=== PATIENT | female | born 1990 | race Asian ===

== ENCOUNTER 2019-11-30 20:26 | Emergency (ER) | payer OTHER ==
[2019-11-30 20:45] VITALS: TEMP 97.9; BMI 29.2
[2019-11-30] MEDS ORDERED: ACETAMINOPHEN 325 MG TABLET (FP) PO ONE (22:23)
--- NOTE | 2019-11-30 22:41 | PDOC ---
History of Present Illness - History of Present Illness Initial Comments: 11/30/19 22:25 29 y/o F with no PMH presents to the ED for left sided abdominal and back pain. pt explains that she was cleaning her 's car when she fell on her buttocks yesterday. Since then she has been having this 4/10 intermittent pain in her back/ abdomen on the left side. Pain is dull non radiating without any associated symptoms. On further questioning, pt endorses that her LMP was mid july, has been gaining weight, 2 episodes of intermittent spotting (2weeks ago and 6 days ago) with a positive home month and a half ago. Pt has not been able to see an Invasive Cardiologist due to lab of appointment availability. She denies any F/C/V/D,FND, vaginal discharge, vaginal odor, dysuria, frequency or urgency. PMH: none PSH: C section Social Hx:denies Constitutional: no fever, chills HEENT: no throat pain, no dysphagia Cardiovascular: no chest pain, no palpitations Respiratory: no cough, no shortness of breath Gastrointestinal: Nausea but no vomiting Genitourinary:no dysuria, no frequency no urgency Musculoskeletal: no myalgia, no arthralgia Skin: no bruising Neurologic: no weakness Psych: no agitation, no anxiety PE: VSS GEN: NAD Neuro: CN 2-12 intact, motor strength 5/5 in all muscle groups, sensation intact throughout, 2+ reflexes in U&L extremities, gait normal HEENT: PERRLA, moist membrane, clear conjunctiva NECK: no JVD CHEST:vesicular breath sounds b/l no wheezing, no rales appreciated HEART:RRR, no murmur, rubs or gallop ABDOMEN: + BS, soft,LLQ tenderness Extremities: 2+ pulses, no edema SKIN: intact, warm and dry, mild swelling in the R groin MSK: no arthralgia, no joint tenderness, back pain Assessment: based on HPI and PE DDx : muscle sprain s/p fall, round ligament pain from growing , ectopic Plan: CBC, CMP, UA, serum preg, if positive transabdominal US CBC WBC 6.9 K/mm3 (4.0-10.0) 11/30/19 22:50 RBC 4.32 M/mm3 (3.60-5.2) 11/30/19 22:50 Hgb 11.9 GM/dL (10.7-15.3) 11/30/19 22:50 Hct 36.3 % (32.4-45.2) 11/30/19 22:50 MCV 83.9 fl (80-96) 11/30/19 22:50 MCH 27.4 pg (25.7-33.7) 11/30/19 22:50 MCHC 32.7 g/dl (32.0-36.0) 11/30/19 22:50 RDW 15.7 % (11.6-15.6) H 11/30/19 22:50 Plt Count 283 K/MM3 (134-434) 11/30/19 22:50 MPV 7.3 fl (7.5-11.1) L 11/30/19 22:50 Absolute Neuts (auto) 4.2 K/mm3 (1.5-8.0) 11/30/19 22:50 Neutrophils % 61.3 % (42.8-82.8) 11/30/19 22:50 Lymphocytes % 30.5 % (8-40) 11/30/19 22:50 Monocytes % 5.0 % (3.8-10.2) 11/30/19 22:50 Eosinophils % 1.7 % (0-4.5) 11/30/19 22:50 Basophils % 1.5 % (0-2.0) 11/30/19 22:50 Nucleated RBC % 0 % (0-0) 11/30/19 22:50 unremarkable 11/30/19 23:31 serum positive, HCG level pending will now take patient to US for further evaluation UA negative Pt refusing transvaginal US and only consents for abdominal US despite explanation of incomplete evaluation of her uterus and fetus will f/u with her upcoming appointment in november <Regina Forbes - Last Filed: 12/01/19 00:38> <Josse Pop - Last Filed: 12/01/19 01:32> - General Chief Complaint: Pain, Acute Stated Complaint: 12WK ND/ABD PAIN Time Seen by Provider: 11/30/19 22:01 Past History - Past Medical History COPD: No - Immunization History Immunization Up to Date: Yes - Psycho Social/Smoking Cessation Hx Smoking History: Never smoked Have you smoked in the past 12 months: No Hx Alcohol Use: No Drug/Substance Use Hx: No Substance Use Type: None <Regina Forbes - Last Filed: 12/01/19 00:38> <Josse Pop - Last Filed: 12/01/19 01:32> - Past Medical History Allergies/Adverse Reactions: Allergies Allergy/AdvReac Type Severity Reaction Status Date / Time No Known Allergies Allergy Verified 11/30/19 20:42 Home Medications: Ambulatory Orders Metronidazole [Flagyl] 500 mg PO BID #14 tablet 05/29/14 *Physical Exam - Vital Signs Last Vital Signs Temp Pulse Resp BP Pulse Ox 97.9 F 74 20 115/68 100 11/30/19 20:43 11/30/19 20:43 11/30/19 20:43 11/30/19 20:43 11/30/19 20:43 <Regina Forbes - Last Filed: 12/01/19 00:38> - Vital Signs Last Vital Signs Temp Pulse Resp BP Pulse Ox 97.9 F 74 20 115/68 100 11/30/19 20:43 11/30/19 20:43 11/30/19 20:43 11/30/19 20:43 11/30/19 20:43 <Josse Pop - Last Filed: 12/01/19 01:32> ED Treatment Course - LABORATORY CBC & Chemistry Diagram: 11/30/19 22:50 11/30/19 22:50 <Regina Forbes - Last Filed: 12/01/19 00:38> - LABORATORY CBC & Chemistry Diagram: 11/30/19 22:50 11/30/19 22:50 - ADDITIONAL ORDERS Additional order review: Laboratory Results 12/01/19 11/30/19 11/30/19 00:05 22:50 22:50 Sodium 137 Potassium 3.7 Chloride 105 Carbon Dioxide 24 Anion Gap 8 BUN 7.5 Creatinine 0.5 L Est GFR (CKD-EPI)AfAm 149.47 Est GFR (CKD-EPI)NonAf 128.97 Random Glucose 82 Calcium 8.9 Total Bilirubin 0.3 AST 14 L ALT 17 Alkaline Phosphatase 63 Total Protein 7.4 Albumin 3.5 Beta HCG, Quant 17425.4 Serum , Qual Positive Urine Color Yellow Urine Appearance Clear Urine pH 7.0 Ur Specific Bogard 1.011 Urine Protein Negative Urine Glucose (UA) Negative Urine Ketones Negative Urine Blood Negative Urine Nitrite Negative Urine Bilirubin Negative Urine Urobilinogen 0.2 Ur Leukocyte Esterase Negative 11/30/19 22:50 RBC 4.32 MCV 83.9 MCHC 32.7 RDW 15.7 H MPV 7.3 L Neutrophils % 61.3 Lymphocytes % 30.5 Monocytes % 5.0 Eosinophils % 1.7 Basophils % 1.5 - RADIOLOGY Radiology Studies Ordered: Category Date Time Status US(SINGLE) [US] Stat Ultrasound 12/01/19 00:35 Taken 12/01/19 01:29 Patient Information: : 1990 Order Type: Preliminary Name: KAITLYN CHARLES Sex: F Study Description: US OBSTETRIC LIMITED Modality: US Location: [facility] Referring Physician: DOMENICO HOOPER Comments: Debby Banerjee MD wrote on Dec 01, 2019 at 01:11 AM: Referring Physician: DOMENICO HOOPER Patient Name: ARACELI SAHNI THIS IS A PRELIMINARY REPORT FROM [facility] DATE OF SERVICE: 2019-12-01 00:40:20 IMAGES: 17 EXAM: OB Ultrasound >/=14 wks single fetus and Duplex scan pelvis, complete Single live intrauterine Gestational age 16 weeks 1 day(s) heart rate 145 bpm Closed cervix 4.5 cm long Transverse presentation Anterior placenta THIS DOCUMENT HAS BEEN ELECTRONICALLY SIGNED CONFIDENTIALITY NOTICE: This information is intended only for the use of the recipient(s) named above. If you are not the intended recipient, or a person responsible for delivering it to the intended recipient, you are hereby notified that any disclosure, copying, distribution or use of any of the information contained in or attached to this transmission is STRICTLY PROHIBITED. If you have received this transmission in error, please immediately notify Imaging Painting Worker and destroy the original transmission and its attachments without saving them in any manner [address] [place] [address] [place] [address] Phone: [phone] ([phone]) Fax: Email: [email or web address] Patient Information: : 1990 Order Type: Preliminary Name: KAITLYN CHARLES Sex: F Study Description: US OBSTETRIC LIMITED Modality: US Location: [facility] Referring Physician: DOMENICO Banerjee M.D. 12/01/2019 01:10 KARON Raya Please call Imaging Painting Worker [phone]) with questions. Debby Banerjee MD Clinicians - Please contact Imaging Painting Worker with further questions at [phone]) Patients - Please contact your Ordering Provider with questions. - Medications Given in the ED: ED Medications Discontinued Medications Generic Name Dose Route Start Last Admin Trade Name Freq PRN Reason Stop Dose Admin Acetaminophen 650 mg 11/30/19 22:23 11/30/19 23:36 Tylenol - PO 11/30/19 22:24 650 mg ONCE ONE Administration <Josse Pop - Last Filed: 12/01/19 01:32> Medical Decision Making - Medical Decision Making 12/01/19 00:01 29 y/o F with no significant PMH presenting to the ED s/p fall. LABS and Physical exam unremarkable except for positive serum . bHCG pending as well as transvaginal US. Based on findings patient most likely to be discharged home with close f/u with Invasive Cardiologist for care <Regina Forbes - Last Filed: 12/01/19 00:38> - Medical Decision Making 12/01/19 01:28 Transabdominal U/S: OB Ultrasound >/=14 wks single fetus and Duplex scan pelvis, complete Single live intrauterine Gestational age 16 weeks 1 day(s) heart rate 145 bpm Closed cervix 4.5 cm long Transverse presentation Anterior placenta Patient refuses TVUS and type and screen. Patient signs out AMA following risk discussion. Agrees to f/u Invasive Cardiologist <Josse Pop - Last Filed: 12/01/19 01:32> Discharge - Discharge Information Problems reviewed: Yes - Admission No <Regina Forbes - Last Filed: 12/01/19 00:38> - Admission No <Josse Pop - Last Filed: 12/01/19 01:32> - Discharge Information Clinical Impression/Diagnosis: Vaginal bleeding during Qualifiers: Weeks of gestation: unspecified Qualified Code(s): Z34.90 - Encounter for sup ervision of normal , unspecified, unspecified trimester Condition: Improved Disposition: AGAINST MEDICAL ADVICE - Follow up/Referral Referrals: Estrellita Panda MD [Staff Physician] - Call tomorrow ON STAFF,NOT [Primary Care Provider] - Call tomorrow Bing Saldaña MD [Staff Physician] - Call tomorrow - Patient Discharge Instructions Patient Printed Discharge Instructions: DI for Vaginal Bleeding During Additional Instructions: You came to the ED after a fall. You also was suspicious of being . We tested your blood, and your urine and you are found to be . Please follow up with the bridge worker apprentice doctors provided for care as soon as possible. if unable to obtain earlier appointment, please follow up with your appointment in november If you begin to experience bleeding, worsening abdominal pain, new symptoms please return to the emergency room immediately. As discussed you refused type and screen and transvaginal ultrasound. You may have undiagnosed illness or medical diagnosis that if left untreated can lead to multiple complications including, but not limited to permanent disability and . Should you reconsider you should turn to the emergency department for evaluation. - Post Discharge Activity
[2019-11-30 23:00] LABS: BASO % 1.5 % (0-2.0); EOS % 1.7 % (0-4.5); HEMATOCRIT 36.3 % (32.4-45.2); HEMOGLOBIN 11.9 GM/dL (10.7-15.3); LYMPH % 30.5 % (8-40); MCH 27.4 pg (25.7-33.7); MCHC 32.7 g/dl (32.0-36.0); MEAN CELL VOLUME 83.9 fl (80-96); MEAN PLT VOLUME 7.3 fl (7.5-11.1); NEUT % 61.3 % (42.8-82.8); PLATELET COUNT 283 K/MM3 (134-434); RBC 4.32 M/mm3 (3.60-5.2); RDW 15.7 % (11.6-15.6); WHITE BLOOD COUNT 6.9 K/mm3 (4.0-10.0)
[2019-11-30] MEDS ORDERED: ACETAMINOPHEN 325 MG TABLET (FP) ONE (23:37)
[2019-11-30 23:50] LABS: ALBUMIN 3.5 g/dl (3.4-5.0); BILIRUBIN,TOTAL 0.3 mg/dL (0.2-1); BLOOD UREA NITROGEN 7.5 mg/dL (7-18); CALCIUM 8.9 mg/dL (8.5-10.1); CREATININE 0.5 mg/dL (0.55-1.3); POTASSIUM 3.7 mmol/L (3.5-5.1); TOT PROT 7.4 g/dl (6.4-8.2)
[2019-12-01 00:32] LABS: URINE APPEARANCE CLEAR; URINE BILIRUBIN NEGATIVE (NEGATIVE); URINE COLOR YELLOW; URINE GLUCOSE (UA) NEGATIVE (NEGATIVE); URINE KETONE NEGATIVE (NEGATIVE); URINE LEUK ESTERASE NEGATIVE (NEGATIVE); URINE NITRITE NEGATIVE (NEGATIVE); URINE PROTEIN NEGATIVE (NEGATIVE); URINE UROBILINOGEN 0.2 mg/dL (0.2-1.0)
[2019-12-01 01:37] VITALS: BP 119/83; PULSE 84
--- NOTE | 2019-12-01 01:46 | PDOC ---
Attending Attestation - Resident Resident Name: Regina Forbes - ED Attending Attestation I have performed the following: I have examined & evaluated the patient, The case was reviewed & discussed with the resident, I agree w/resident's findings & plan - HPI HPI: 12/01/19 01:44 see resident hpi - Physicial Exam PE: 12/01/19 01:44 see resident exam - Medical Decision Making 12/01/19 01:44 29-year-old gravid female male of unknown gestational age requesting check after falling onto her bottom and having intermittent spotting over the last few weeks, prior to fall Transabdominal ultrasound showed a 16-week a live IUP with heart rate of 145 Patient refusing to stay for Rh check Patient refused, adamantly transvaginal ultrasound as well She will be signing out AGAINST MEDICAL ADVICE and understands that she is putting the at risk should she be in need of RhoGam or have any additional pathology involving the ovaries She states that she will call her CLAY STAIN MIXER in the morning for follow-up She is alert oriented x4 and has verbalized understanding of her AMA form
== END 2019-12-01 01:43 | disposition left against medical advice (07) ==
LOC: JER 20:26
DX: O26.892 Other specified pregnancy related conditions, second trimester (principal); O46.92 Antepartum hemorrhage, unspecified, second trimester; Z3A.16 16 weeks gestation of pregnancy; W19.XXXA Unspecified fall, initial encounter; Y93.89 Activity, other specified; Y92.89 Other specified places as the place of occurrence of the external cause; Y99.8 Other external cause status
CPT/HCPCS: 36415; 76801-TC; 80053; 81003; 84702; 84703; 85025; 87086; 99284-25